=== PATIENT | male | born 1995 | race African-American/Black ===

== ENCOUNTER 2020-09-08 10:14 | Emergency (ER) | payer MEDICAID, OTHER ==
[~2020-09-08] VITALS: Ht 195.6 cm; Wt 78.0 kg
[2020-09-08 10:35] VITALS: BP 121/67
[2020-09-08] MEDS ORDERED: cefTRIAXone SOD 1,000 MG VL IM ONE (11:15)
[2020-09-08 11:27] LABS: Urine Bacteria NONE SEEN /hpf (None Seen); Urine Blood 1+ /uL (Negative); Urine Mucus FEW (None Seen); Urine Specific Gravity 1.022 (1.001-1.035); Urine WBC 188 /hpf (0 - 3)
== END 2020-09-08 11:44 | disposition home or self-care (01) ==
LOC: ER 10:14
DX: N34.2 Other urethritis (principal); F17.210 Nicotine dependence, cigarettes, uncomplicated; Z20.2 Contact with and (suspected) exposure to infections with a predominantly sexual mode of transmission
CPT/HCPCS: 81001; 96372; 99283; J0696